=== PATIENT | female | born 1985 | race Hispanic/Latino ===

== ENCOUNTER 2018-07-25 17:09 | Inpatient (IN) | payer OTHER, MEDICAID | END 2018-07-27 13:00 | disposition home or self-care (01) | LOC: LDH 17:09 → WSH 23:55 | PROC: 10D07Z6 Extraction of Products of Conception, Vacuum, Via Natural or Artificial Opening (ICD-10-PCS; principal; ~2018-07-25) | PROC: 0W8NXZZ Division of Female Perineum, External Approach (ICD-10-PCS; ~2018-07-25) | DX: O80 Encounter for full-term uncomplicated delivery (principal); Z37.0 Single live birth; Z3A.38 38 weeks gestation of pregnancy ==